=== PATIENT | female | born 1975 | race Asian ===

== ENCOUNTER 2016-12-27 20:44 | Inpatient (IN) | payer OTHER ==
[~2016-12-27] VITALS: Ht 175.3 cm; Wt 87.8 kg
[2016-12-27] MEDS ORDERED: MORPHINE SULFATE 4 MG/ML, 1ML ONE (20:52)
[2016-12-27] MEDS ORDERED: PROPOFOL 10 MG/ML, 20ML ONE (20:59)
[2016-12-27] MEDS ORDERED: ONDANSETRON 2MG/ML, 2ML IVPush ONE (21:00)
[2016-12-27] MEDS ORDERED: MORPHINE SULFATE 4 MG/ML, 1ML IVPush ONE (21:00)
[2016-12-27] MEDS ORDERED: PROPOFOL 10 MG/ML, 20ML IVPush ONE (21:00)
[2016-12-27] MEDS ORDERED: D5%-0.45% NACL 1,000 ML IV ONE (21:27)
[2016-12-27] MEDS ORDERED: MORPHINE SULFATE 4 MG/ML, 1ML IVPush PRN (21:30)
[2016-12-27] MEDS ORDERED: ONDANSETRON 2MG/ML, 2ML IVPush PRN (21:30)
[2016-12-27] MEDS ORDERED: SODIUM CHLORIDE FLUSH 10ML SYR IVF PRN (21:30)
[2016-12-27] MEDS ORDERED: HYDROmorphone 1 MG/ML, 1ML ONE (21:36)
[2016-12-27] MEDS ORDERED: HYDROmorphone 2 MG/ML, 1ML IVPush ONE (22:00)
[2016-12-27 22:53] VITALS: BP 116/64
[2016-12-27] MEDS ORDERED: MULT-658 PO (23:05)
[2016-12-28 02:33] VITALS: BP 110/58
[2016-12-28] MEDS: HYDROmorphone 1 MG/ML, 1ML IVPush PRN ×2 (02:47→07:17)
[2016-12-28 07:54] VITALS: BP 113/67
[2016-12-28] MEDS ORDERED: ONDANSETRON 2MG/ML, 2ML IVPush PRN ×2 (08:30→15:00)
[2016-12-28] MEDS: HYDROmorphone 2 MG/ML, 1ML IVPush PRN ×2 (08:33→10:47)
[2016-12-28] MEDS ORDERED: BUPIVACAINE/PF 0.25% ONE (12:08)
[2016-12-28] MEDS ORDERED: ROPIvacaine/PF 0.5%, 30 ML ONE (12:08)
[2016-12-28] MEDS ORDERED: FENTANYL PF 100 MCG/2ML ONE (13:03)
[2016-12-28] MEDS ORDERED: MIDAZOLAM 1 MG/ML, 2ML ONE (13:03)
[2016-12-28 14:00] VITALS: BP 111/57
[2016-12-28] MEDS ORDERED: ONDANSETRON 2MG/ML, 2ML ONE (14:09)
[2016-12-28] MEDS ORDERED: CEFAZOLIN 1,000 MG ONE (14:09)
[2016-12-28] MEDS ORDERED: DEXAMETHASONE 4 MG/ML, 5ML ONE (14:09)
[2016-12-28] MEDS ORDERED: PROPOFOL 10 MG/ML, 20ML ONE (14:09)
[2016-12-28] MEDS ORDERED: METOPROLOL 1 MG/ML, 5ML IV PRN (15:00)
[2016-12-28] MEDS ORDERED: MEPERIDINE/PF 25MG/0.5ML IVPush PRN (15:00)
[2016-12-28] MEDS ORDERED: hydrALAzine 20 MG/ML, 1ML IV PRN (15:00)
[2016-12-28] MEDS ORDERED: ALBUTEROL SULFATE 2.5 MG/3 ML NPPB PRN (15:00)
[2016-12-28] MEDS ORDERED: EPHEDRINE 50 MG/ML, 1ML IVPush PRN (15:00)
[2016-12-28] MEDS ORDERED: ACETAMINOPHEN 325 MG TABLET PO PRN (15:00)
[2016-12-28] MEDS ORDERED: FENTANYL PF 100 MCG/2ML IV PRN (15:00)
[2016-12-28] MEDS ORDERED: OXYcodone 5 MG/5 ML ORAL.SOL UDC PO PRN (15:00)
[2016-12-28] MEDS ORDERED: LABETALOL 5MG/ML, 20ML IV PRN (15:00)
[2016-12-28] MEDS ORDERED: OXYcodone/APAP 5/325MG TABLET PO PRN (17:30)
[2016-12-28 17:34] VITALS: BP 111/57
[2016-12-28] MEDS ORDERED: CEPH-368 PO (18:19)
[2016-12-28] MEDS ORDERED: OXYC-302 PO (18:19)
[2016-12-28 19:02] VITALS: BP 117/61
[2016-12-28 20:00] VITALS: BP 121/50
== END 2016-12-28 20:30 | disposition home or self-care (01) | DRG 494 ==
LOC: ED 21:49 → EDIP 21:50 → 4NOR 22:25
PROVIDERS: ADMIT Orthopaedic Surgery Orthopaedic Surgery of the Spine; ATTEND Orthopaedic Surgery Orthopaedic Surgery of the Spine
PROC: 0QSK04Z Reposition Left Fibula with Internal Fixation Device, Open Approach (ICD-10-PCS; 2016-12-28)
PROC: 0QSH04Z Reposition Left Tibia with Internal Fixation Device, Open Approach (ICD-10-PCS; principal; 2016-12-28 17:15)
DX: S82.852A Displaced trimalleolar fracture of left lower leg, initial encounter for closed fracture (principal); W18.39XA Other fall on same level, initial encounter; Y93.89 Activity, other specified; Y92.89 Other specified places as the place of occurrence of the external cause; Y99.8 Other external cause status
CPT/HCPCS: 27810; 36415; 71010; 76000; 84703; 85025; 85610; 93005; 96374; 96375; 99152; 99153; C1713; J0690; J1100; J1170; J2250; J2405; J2704; J2795; J3010; J3490